=== PATIENT | male | born 1985 | race Caucasian/White ===

== ENCOUNTER 2024-07-25 11:38 | Emergency (ER) | payer OTHER ==
[~2024-07-25] VITALS: Ht 175.3 cm; Wt 72.6 kg
[2024-07-25] MEDS ORDERED: ASPI-1169 PO (12:27)
[2024-07-25 12:35] VITALS: BP 145/76; TEMP 98.2; O2SAT 99
== END 2024-07-25 12:35 ==
LOC: ER 11:44
DX: Z02.89 Encounter for other administrative examinations (principal); F19.11 Other psychoactive substance abuse, in remission; F17.200 Nicotine dependence, unspecified, uncomplicated; Z86.79 Personal history of other diseases of the circulatory system; Z95.2 Presence of prosthetic heart valve